=== PATIENT | male | born 1950 | race Caucasian/White ===

== ENCOUNTER → 2016-11-22 | Outpatient (CLI) | payer MEDICARE, OTHER ==
[~2016-11-22] MED LIST: ACETAMINOPHEN PO; ACTOS PLUS MET PO; ASPIRIN EC81 M1 PO; ASPIRIN PO; EXFORGE HCT 101 EACH PO; EXFORGE HCT PO; FINASTERIDE5 M1 PO; FLAX SEED OIL1000 M1; FLAX SEED OIL1000 M1 PO; FLAX SEED OIL1000 MG PO; GLUCOPHAGE850 MG PO; HUMALOG100 U/ML SUBQ; HYTRIN1 M1 PO; HYTRIN5 M1 DOB; INVOKANA100 MG PO; JANUVIA PO; LANTUS100 U/ML SUBQ; LIPITOR PO; LYRICA PO; LYRICA50 MG PO; MAGNESIUM CITR100 MG PO; MEDROL PO; OSENI 25-15 MG1 EACH PO; PHENERGAN25 MG PO; PRILOSEC PO; PRILOSEC20 M1 PO; SELENIUM200 MC2 PO; SELINIUM PO; TYLOX 5/500 CAP1 CAP PO; VICODIN 5/1 TAB 5/50 PO
--- NOTE | ~2016-11-22 | CT57 ---
[facility] A Service of [facility] RADIOLOGY TEXT RESULTS PATIENT: JENNIFER NINO LOCATION: [facility] : 46 UNIT #: [id number] AGE: [address]: Sheri Farias APRN SEX: M ORDER DR: [id number] [facility] [address] [place], [place] [address] [id number] O MR#: [id number] [facility] #: [id number] NAME: JENNIFER NINO : 1950 SEX: M STUDY DATE/TIME: 11/22/2016 9:46 UNIT: [facility] ROOM: STUDY DESCRIPTION: CT Chest Wo Cont Attending Physician: Sheri Farias A.P.R.N. Referring Physician: Sheri Farias A.P.R.N. Ordering Physician: Sheri Farias A.P.R.N. Primary Care Physician: Sergio Park M.D. MEDICAL IMAGING REPORT This report is preliminary unless electronic signature is present EXAM CT of the chest without contrast INDICATION This patient was noted to have a left lower lobe pulmonary nodule which was identified on a CT scan performed on December 28, 2015. TECHNIQUE Axial CT images were obtained from the thoracic inlet through the dome of the diaphragm. No intravenous contrast material was administered. This CT exam was performed with one or more of the following radiation dose reduction techniques: automatic exposure control, adjustment of mA and/or kV according to patient size, and iterative reconstruction. FINDINGS Previously identified left lower lobe pulmonary nodule is again seen. I think it may actually be calcified on today's examination. It is unchanged in size and is benign. The thyroid gland, trachea and esophagus appear unremarkable. There is no pleural or pericardial effusion. Mediastinal lymph nodes do not appear pathologically enlarged. Patient does have aneurysmal dilatation of the ascending thoracic aorta measuring up to 4 cm. It is unchanged when compared to last year's study. The proximal descending thoracic aorta measures about 3.1 cm, again not significantly changed when compared to the prior examination and descending thoracic aorta tapers to normal caliber. No acute abnormalities are seen within the upper abdomen. Gallbladder is surgically absent. Review of bony windows does not demonstrate any aggressive osseous abnormalities. IMPRESSION 1. Previously identified left lower lobe pulmonary nodule is stable at 3 mm in size and in fact may actually be calcified on this study [facility] A Service of [facility] RADIOLOGY TEXT RESULTS PATIENT: JENNIFER NINO LOCATION: [facility] : [birth year] UNIT #: [id number] AGE: [address]: Sheri Farias APRN SEX: M ORDER DR: and is benign. No additional followup is necessary. 2. Stable aneurysmal dilatation of the ascending thoracic aorta and proximal descending thoracic aorta. 3. Also noted but not mentioned in the report, is suggestion of a mass involving the midportion of the right kidney. This may simply be some lobulation within the kidney but I would suggest further evaluation with renal ultrasound. Dictated by... Lacey Raman M.D. THIS IS AN ELECTRONICALLY VERIFIED REPORT Lacey Raman M.D. at 11/22/2016 1:15 PM DRE/jaziel TD: 11/22/2016 12:17 JOB #: [id number] MEDICAL IMAGING REPORT Page 1 of 1 COPY
== END | disposition home or self-care (01) ==
LOC: CCAT 09:31
DX: R91.1 Solitary pulmonary nodule (principal); I71.2 Thoracic aortic aneurysm, without rupture
CPT/HCPCS: 71250

== ENCOUNTER → 2016-11-28 | Outpatient (CLI) | payer MEDICARE, OTHER ==
--- NOTE | ~2016-11-28 | US77 ---
[facility] A Service of [facility] RADIOLOGY TEXT RESULTS PATIENT: JENNIFER NINO LOCATION: [facility] : 48 UNIT #: [id number] AGE: [address]: Chaparrita Nolasco MD SEX: M ORDER DR: [id number] [facility] [address] [place], [place] [address] [id number] O MR#: [id number] Acc #: [id number] NAME: JENNIFER NINO : 1950 SEX: M STUDY DATE/TIME: 11/28/2016 14:01 UNIT: [facility]US ROOM: STUDY DESCRIPTION: US Kidney Bilateral Complete Attending Physician: Chaparrita Nolasco M.D. Ordering Physician: Chaparrita Nolasco M.D. Primary Care Physician: Sergio Park M.D. MEDICAL IMAGING REPORT This report is preliminary unless electronic signature is present EXAM Renal ultrasound. INDICATION This patient had a CT of the chest performed on November 22, 2016, and had the suggestion of a potential mass within the right kidney. This exam has been requested for further evaluation. TECHNIQUE Negrete-scale and color Doppler sonographic images were obtained through the kidneys and bladder. FINDINGS I think cortex appears somewhat lobulated within the right kidney which likely accounts for the finding on recent CT. No definite discrete solid or cystic renal masses are seen and there is no hydronephrosis. The left kidney is normal in appearance again without any solid or cystic renal masses identified and no hydronephrosis seen. The patient's prostate gland does appear to be enlarged incidentally noted is some diffuse hepatic steatosis. IMPRESSION 1. I think the abnormalities seen on patient's recent chest CT likely corresponds to some lobulated cortical tissue rather than to any underlying mass lesion. 2. Suspected prostatic enlargement. 3. Diffuse hepatic steatosis. Dictated by... Lacey Raman M.D. THIS IS AN ELECTRONICALLY VERIFIED REPORT [facility] A Service [facility] RADIOLOGY TEXT RESULTS PATIENT: JENNIFER NINO LOCATION: [facility] : 46 UNIT #: [id number] AGE: [address]: Chaparrita Nolasco MD SEX: M ORDER DR: Lacey Raman M.D. at 11/29/2016 4:39 PM AFF/jt TD: 11/28/2016 23:36 JOB #: [id number] MEDICAL IMAGING REPORT Page 1 of 1 COPY
== END | disposition home or self-care (01) ==
LOC: CGUS 13:39
DX: N28.89 Other specified disorders of kidney and ureter (principal); K76.0 Fatty (change of) liver, not elsewhere classified
CPT/HCPCS: 76770

== ENCOUNTER → 2017-03-05 | Outpatient (CLI) | payer MEDICARE, OTHER | END | disposition home or self-care (01) | LOC: CRC 09:36 | DX: R06.02 Shortness of breath (principal) | CPT/HCPCS: 94060; 94726; 94729 ==